=== PATIENT | male | born 1960 | race Caucasian/White ===

== ENCOUNTER 2019-07-08 07:51 | Outpatient (CLI) | payer BC ==
--- NOTE | 2019-07-08 11:17 | MRI ---
MRI LEFT SHOULDER PERFORMED WITHOUT CONTRAST ENHANCEMENT: Date: 07/08/19 HISTORY: Left shoulder pain. Patient had a fall approximately 20 months ago. 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 The infraspinatus tendon is normal in appearance. Infraspinatus muscle is normal. There is an essentially nonretracted far anterior supraspinatus tendon tear. The full thickness compo nent of this measures approximately 8-9 mm in AP dimension. In addition to this partial width full th ickness tear, there is edema change and indistinct tendon fibers extending back to the musculotendino us junction and edema changes at the musculotendinous junction of the supraspinatus tendon consistent with a muscle strain. This is also associated with an amorphous increased signal change in the rotat or cuff interval, with an indistinct ray mechanism and indistinct interarticular portion of the bi ceps tendon. The subscapularis tendon appears to be intact, although there is irregularity to the und ersurface fibers of the superior aspect of the subscapularis tendon, which I suspect represents a sma ll undersurface tear. The biceps tendon does lie in a normal position within the bicipital groove. Labrum shows a truncated appearance to the superior labrum directly posterior to the biceps anchor co nsistent with a SLAP type tear. Posterior inferior labrum appears intact. There is a paralabral cyst near the junction of the anterior inferior and inferior labrum measuring approximately 8.0 mm in size . No significant rotator cuff muscle atrophy. IMPRESSION: 1. Full thickness, partial width, nonretracted, far anterior supraspinatus tendon tear measuring anival roximately 8.0 mm in AP dimension. Associated with the tear, there are edema changes at the musculote ndinous junction of the supraspinatus tendon compatible with muscle strain. There is also edema brown e and an indistinct appearance to the rotator cuff interval. It think there is associated rotator int erval injury. The interarticular portion of the biceps tendon is indistinct and the ray mechanism is also very indistinct, also with probable some partial tearing of the superior fibers of the subsca pularis tendon. 2. Very truncated appearance to the superior labrum suggesting a SLAP type tear. In addition, there is a paralabral cyst involving the more inferior labrum near the junction of the anterior inferior la hailey with inferior labrum. This measures in the 8.0 mm range. The anterior inferior labrum is somewha t irregular in appearance. I am not certain if this is a separate tear or some type of continuation o f the SLAP tear anteriorly. POS: [facility]
== END 2019-07-08 07:52 | disposition home or self-care (01) ==
LOC: TBSIIMAG 07:51
PROVIDERS: ATTEND Orthopaedic Surgery
DX: M75.102 Unspecified rotator cuff tear or rupture of left shoulder, not specified as traumatic (principal)

== ENCOUNTER 2019-07-14 15:08 | Outpatient (CLI) | payer BC ==
[2019-07-14 15:57] LABS: %Basophils 0.7 % (0.0-1.0); %Eosinophils 1.7 % (0.0-10.0); %Lymphocytes 29.8 % (21.0-51.0); %Monocytes 9.1 % (0.0-10.0); %Neutrophils 58.7 % (42.0-75.0); Hemoglobin 15.8 g/dL (14.0-18.0); Mean Corpuscular HGB CONC 34.7 g/dL (32.0-36.0); Mean Corpuscular Hemoglobin 30.9 pg (27.0-31.0); Mean Corpuscular Volume 89.2 fL (78.0-98.0); Mean Platelet Volume 8.7 fL (7.4-10.4); Platelet Count 245 thou/uL (130-400); RBC Distribution Width 11.4 % (11.5-14.5); Red Blood Cell (RBC) Count 5.11 mill/uL (4.70-6.10); White Blood Cell (WBC) Count 7.9 thou/uL (4.8-10.8)
[2019-07-14 15:58] LABS: #Basophils 0.1 thou/uL (0.0-0.2); #Eosinphils 0.1 thou/uL (0.0-0.7); #Lymphocytes 2.4 thou/uL (1.20-3.40); #Monocytes 0.7 thou/uL (0.11-0.59); #Neutrophils 4.7 thou/uL (1.40-6.50)
[2019-07-14 16:16] LABS: Anion Gap 12 mmol/L (10-20); BUN (Urea Nitrogen) 14 mg/dL (8.4-25.7); Calc. Creatinine Clearance 0 mL/min (70-130); Calcium 9.5 mg/dL (7.8-10.44); Carbon Dioxide 25 mmol/L (22-29); Chloride 103 mmol/L (98-107); Estimated GFR-MDRD 49; Glucose 100 mg/dL (70-105); Sodium 136 mmol/L (136-145)
== END 2019-07-14 15:09 | disposition home or self-care (01) ==
LOC: LABBT 15:08
PROVIDERS: ATTEND Orthopaedic Surgery
DX: Z01.812 Encounter for preprocedural laboratory examination (principal); M75.102 Unspecified rotator cuff tear or rupture of left shoulder, not specified as traumatic
CPT/HCPCS: 80048; 85025

== ENCOUNTER 2019-07-21 08:15 | Day surgery (SDC) | payer BC ==
[2019-07-14 15:20] VITALS: BMI 28.0
[2019-07-21] MEDS ORDERED: Midazolam HCl 2 mg/2 ml Vial ONE (08:26)
[2019-07-21] MEDS ORDERED: Fentanyl 100 MCG/2 ML VIAL ONE ×2 (08:26→11:27)
[2019-07-21] MEDS ORDERED: Zolpidem Tartrate 5 MG TAB PO PRN (09:08)
[2019-07-21] MEDS ORDERED: Ketorolac Tromethamine 30 MG/ML VIAL IVP PRN (09:08)
[2019-07-21] MEDS ORDERED: HYDROcodone/Acetaminophen 5/325 mg Tablet PO PRN ×2 (09:08)
[2019-07-21] MEDS ORDERED: Promethazine HCl 25 MG/ML VIAL IM PRN (09:08)
[2019-07-21] MEDS ORDERED: Ropivacaine 0.2% 550 ML 550 ML NERVE BLCK SCH (09:08)
[2019-07-21] MEDS ORDERED: traMADol HCl 50 MG TAB PO PRN ×2 (09:08)
[2019-07-21] MEDS ORDERED: Ondansetron PF 4 MG/2 ML Vial IVP PRN (09:08)
[2019-07-21 09:51] LABS: #Basophils 0.1 thou/uL (0.0-0.2); #Eosinphils 0.1 thou/uL (0.0-0.7); #Lymphocytes 2.1 thou/uL (1.20-3.40); #Monocytes 0.7 thou/uL (0.11-0.59); #Neutrophils 4.1 thou/uL (1.40-6.50); %Basophils 0.9 % (0.0-1.0); %Eosinophils 1.8 % (0.0-10.0); %Monocytes 9.9 % (0.0-10.0); %Neutrophils 57.5 % (42.0-75.0); Hemoglobin 14.9 g/dL (14.0-18.0); Mean Corpuscular HGB CONC 32.6 g/dL (32.0-36.0); Mean Corpuscular Hemoglobin 29.1 pg (27.0-31.0); Mean Corpuscular Volume 89.2 fL (78.0-98.0); Mean Platelet Volume 8.6 fL (7.4-10.4); Platelet Count 247 thou/uL (130-400); RBC Distribution Width 11.5 % (11.5-14.5); Red Blood Cell (RBC) Count 5.13 mill/uL (4.70-6.10); White Blood Cell (WBC) Count 7.1 thou/uL (4.8-10.8)
[2019-07-21 09:56] LABS: Anion Gap 7 mmol/L (10-20); BUN (Urea Nitrogen) 15 mg/dL (8.4-25.7); Calc. Creatinine Clearance 97 mL/min (70-130); Carbon Dioxide 29 mmol/L (22-29); Chloride 105 mmol/L (98-107); Estimated GFR-MDRD 75; Glucose 102 mg/dL (70-105); Potassium 4.2 mmol/L (3.5-5.1); Sodium 137 mmol/L (136-145)
--- NOTE | 2019-07-22 06:47 | OP ---
DATE OF PROCEDURE: 07/21/2019 PREOPERATIVE DIAGNOSES: Rotator cuff tear, biceps tendon partial tear left shoulder. POSTOPERATIVE DIAGNOSES: Biceps tendon 90% tear and supraspinatus tear. ANESTHESIA: General. BLOOD LOSS: Minimal. SPECIMEN: None. DRAINS: None. COMPLICATION: None. CAN CLEANER: Adiel Phillip PA-C DESCRIPTION OF PROCEDURE: The patient was taken to the operating room, where general anesthesia was induced. The patient was positioned in the lateral decubitus position. Left arm was placed in 10 pounds of traction. Appropriate prepping and draping, scope was placed in the glenohumeral joint. I tagged the biceps tendon, debrided the labrum. The scope was placed in a subacromial bursa, performed anterior-inferior acromioplasty. I performed a bursectomy. The CA ligament was taken down. Hemostasis was obtained. I identified the rotator cuff tear. I freshened up the greater tuberosity. Single corkscrew suture anchors placed to the rotator cuff tear and sutures were used to tie down the tendon against the freshly excoriated bleeding bone. The biceps tendon was identified and delivered through lateral portal. I have removed about a 0.5 inch of the tendon. The rest was sutured with FiberWire suture and then, locking Krackow type stitch, measured to be a size 7. I drilled a size seven hole in the proximal humerus and then repaired the biceps tendon with a 7 mm Bio-tenodesis screw. Sutures were tied over the screw head. Shoulder was then drained. Portals were closed with nylon suture. Sterile dressings applied. There were no complications. Job ID: [id number]
== END 2019-07-21 15:07 | disposition home or self-care (01) ==
LOC: SDC 08:15
PROVIDERS: ATTEND Orthopaedic Surgery
PROC: 0RNK4ZZ Release Left Shoulder Joint, Percutaneous Endoscopic Approach (ICD-10-PCS; principal; 2019-07-21)
PROC: 0RHK44Z Insertion of Internal Fixation Device into Left Shoulder Joint, Percutaneous Endoscopic Approach (ICD-10-PCS; principal; 2019-07-21)
PROC: 3E0T3BZ Introduction of Anesthetic Agent into Peripheral Nerves and Plexi, Percutaneous Approach (ICD-10-PCS; principal; 2019-07-21)
PROC: 0LS24ZZ Reposition Left Shoulder Tendon, Percutaneous Endoscopic Approach (ICD-10-PCS; principal; 2019-07-21)
PROC: 0LQ24ZZ Repair Left Shoulder Tendon, Percutaneous Endoscopic Approach (ICD-10-PCS; principal; 2019-07-21)
DX: M75.122 Complete rotator cuff tear or rupture of left shoulder, not specified as traumatic (principal); S46.112A Strain of muscle, fascia and tendon of long head of biceps, left arm, initial encounter; G89.18 Other acute postprocedural pain
CPT/HCPCS: 36415; 80048; 85025; A4306; C1713; J0690; J2250; J2795; J3010

== ENCOUNTER 2025-05-17 08:59 | Outpatient (CLI) | payer BC ==
[2025-05-17 10:34] LABS: Estimated GFR - POC 68.0
== END 2025-05-17 09:00 | disposition home or self-care (01) ==
LOC: SCSMRI 08:59
PROVIDERS: ATTEND Urology
DX: C61 Malignant neoplasm of prostate (principal)
CPT/HCPCS: 36415; 72197; 82565